=== PATIENT | male | born 1985 | race African-American/Black ===

== ENCOUNTER 2016-11-28 13:51 | Emergency (ER) | payer BC, OTHER ==
--- NOTE | 2016-11-28 13:58 | ERD ---
ER Documentation Chief Complaint Date/Time DATE: 11/28/16 TIME: 13:55 Chief Complaint Needlestick injury HPI Patient is a 31-year-old male with no medical problems who presents with a needlestick injury. 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 He was stuck in the left third finger just prior to arrival. The patient that was being operated on had no history of HIV or hepatitis C. The patient has no complaints. He said that he washed the area with chlorhexidine for 10-15 minutes. ROS All systems reviewed and are negative except as per history of present illness. Allergies Allergies: Coded Allergies: No Known Allergy (Unverified , 11/28/16) PMhx/Soc Medical and Surgical Hx: pt denies Medical Hx FmHx Family History: diabetes Physical Exam Physical Exam Const: No acute distress. Resp: Clear to auscultation bilaterally Cardio: Regular rate and rhythm, no murmurs Abd: Soft, non tender, non distended. Normal bowel sounds Skin: No bleeding from the left third finger at this time Neur: Awake and alert Psych: Normal Mood and Affect Procedures/MDM Patient is a 31-year-old male who presents with a needlestick injury. The patient will have laboratory studies done to check for any current history of HIV or hepatitis which the patient currently denies. This does not appear to be a high risk injury as the patient has no further bleeding and it was a small needle in a patient who did not have a history of hepatitis or HIV. The patient will be discharged and will need to follow-up with his primary doctor for further checks. The patient can be followed by employee health going forward as well. We consider prophylaxis but at this point I do not feel the patient requires medication prophylaxis. Departure Diagnosis: Primary Impression: Needle stick injury Encounter type: initial encounter Qualified Code: W27.3XXA - Needle stick injury, initial encounter Condition: Fair Patient Instructions: Standard Precautions: [place] and Other [place] Referrals: Your doctor Additional Instructions: Call your primary care doctor TOMORROW for an appointment during the next 1 WEEK.Tell the accredited legal secretary that you were referred from this facility.See the doctor sooner or return here if your condition worsens before your appointment time. LUCY ROBISON MD Nov 28, 2016 13:58
[2016-11-28 14:26] LABS: BASOPHILS % 0.5 % (0.0-2.0); EOSINOPHILS # 0.1 10^3/ul (0.0-0.5); EOSINOPHILS % 1.8 % (0.0-7.0); HEMATOCRIT 44.2 % (42.0-52.0); HEMOGLOBIN 15.9 g/dl (14.0-18.0); LYMPHOCYTES # 2.4 10^3/ul (0.8-2.9); LYMPHOCYTES % 36.2 % (15.0-51.0); MEAN CORPUSCULAR HEMOGLOBIN 28.2 pg (29.0-33.0); MEAN CORPUSCULAR VOLUME 78.4 fl (82.0-101.0); MEAN PLATELET VOLUME 10.9 fl (7.4-10.4); MONOCYTE # 0.5 10^3/ul (0.3-0.9); MONOCYTES % 7.2 % (0.0-11.0); NEUTROPHILS % 54.1 % (39.0-77.0); PLATELET COUNT 271 10^3/UL (140-415); RED BLOOD COUNT 5.64 10^6/ul (4.70-6.10); RED CELL DISTRIBUTION WIDTH 13.9 % (11.5-14.5); WHITE BLOOD COUNT 6.7 10^3/ul (4.8-10.8)
[2016-11-28 14:34] LABS: ALANINE AMINOTRANSFERASE 30 IU/L (13-69); ALBUMIN 4.5 g/dl (3.3-4.9); ALKALINE PHOSPHATASE 78 IU/L (42-121); ASPARTATE AMINO TRANSFERASE 24 IU/L (15-46); BILIRUBIN,INDIRECT 0.3 mg/dl (0-1.1); BILIRUBIN,TOTAL 0.3 mg/dl (0.2-1.3); TOTAL PROTEIN 7.6 g/dl (6.1-8.1)
== END 2016-11-28 14:59 | disposition home or self-care (01) ==
LOC: E/R 13:51
DX: S61.243A Puncture wound with foreign body of left middle finger without damage to nail, initial encounter (principal); W27.3XXA Contact with needle (sewing), initial encounter; Y92.9 Unspecified place or not applicable
CPT/HCPCS: 80076; 85025; 86703; 86706; 86803; 87340; 99283